=== PATIENT | female | born 1995 | race Caucasian/White ===

== ENCOUNTER 2019-05-16 16:41 | Emergency (ER) | payer OTHER ==
[~2019-05-16] VITALS: Ht 157.5 cm; Wt 90.7 kg
[2019-05-16 16:51] VITALS: BP_SYST 130
[2019-05-16 17:34] LABS: BLOOD, URINE 3+ (NEGATIVE); CLARITY/URINE SL CLOUDY (CLEAR); COLOR,URINE RED (YELLOW); GLUCOSE,URINE NEGATIVE (NEGATIVE); KETONES,URINE 1+ (NEGATIVE); LEUKOCYTE ESTERASE ,URINE 2+ (NEGATIVE); NITRITE, URINE NEGATIVE (NEGATIVE); PH,URINE 5.5 (5.0-8.0); PROTEIN URINE 2+ (NEGATIVE)
[2019-05-16 17:38] LABS: BILIRUBIN,URINE NEGATIVE (NEGATIVE)
[2019-05-16 17:39] LABS: BACTERIA,URINE MODERATE /HPF (None Seen); MUCUS,URINE None Seen /LPF (None Seen); RBC,URINE >100 /HPF (0-3); WBC,URINE 20-50 /HPF (0-3)
--- NOTE | 2019-05-16 18:13 | NUR ---
Patient to ER bed 04 to gown for evaluation. Side rails up.
--- NOTE | 2019-05-16 18:30 | NUR ---
PAtient presented to ER with dizziness with head ache. Patient A&ox4, afebrile, ambulatory to ER, denies pain, denies N/V/D. Patient HX of vaginal delivery x1 week ago.
--- NOTE | 2019-05-16 18:35 | NUR ---
ER Dr. Aly at bedside examining patient.
[2019-05-16] MEDS ORDERED: NACL 0.9% 1,000 ML IV ONE ×2 (18:45→21:30)
[2019-05-16 19:16] LABS: BASOPHILS # (AUTO) 0.1 K/uL (0.0-0.2); BASOPHILS % (AUTO) 0.6 % (0.0-2.0); EOSINOPHILS # (AUTO) 0.2 K/uL (0.0-0.4); EOSINOPHILS % (AUTO) 2.4 % (0.0-4.0); HEMATOCRIT 40.5 % (36-48); HEMOGLOBIN 13.4 g/dL (12.0-16.0); LYMPHOCYTES # (AUTO) 2.8 K/uL (1.0-5.5); MEAN CORPUSCULAR HEMOGLOBIN 30 pg (27-31); MEAN CORPUSCULAR HGB CONC 33 % (32-36); MEAN CORPUSCULAR VOLUME 92 fL (79.0-98.0); MONOCYTES # (AUTO) 0.4 K/uL (0.0-1.0); MONOCYTES % (AUTO) 3.9 % (1.7-9.3); NEUTROPHILS # (AUTO) 6.5 K/uL (1.8-7.7); NEUTROPHILS % (AUTO) 65.1 % (40.0-70.0); PLATELET COUNT (AUTO) 382 K/uL (130-430); RED BLOOD CELL COUNT(AUTO) 4.41 MIL/uL (4.2-6.2); RED CELL DISTRIBUTION WIDTH 13.7 % (9.0-15.0); WHITE BLOOD COUNT (AUTO) 9.9 K/uL (4.8-10.8)
--- NOTE | 2019-05-16 19:17 | NUR ---
Report to Nohelia DAY
[2019-05-16 19:20] LABS: CREATININE 0.65 mg/dL (0.55-1.30); POTASSIUM 3.8 mmol/L (3.5-5.1)
[2019-05-16 19:26] LABS: ALBUMIN 2.8 g/dL (3.4-4.8); TOTAL BILIRUBIN 0.1 mg/dL (0.0-1.0)
--- NOTE | 2019-05-16 19:40 | NUR ---
Patient resting quietly. No acute distress noted. Vital signs within normal range.
--- NOTE | 2019-05-16 19:50 | NUR ---
Sisi fisher in ED - 05/16/19 at 2004 by [email or web address] Pt returned from US on stable condition, VSS, no s/s of distress.
--- NOTE | 2019-05-16 19:50 | NUR ---
Pt to U/S via W/C in stable condition.
--- NOTE | 2019-05-16 20:01 | NUR ---
Pt returns from U/S, no needs verbalized at this time.
[2019-05-16] MEDS ORDERED: cefTRIAXone 1 GM IVPB PREMIX 50 ML IV ONE (21:15)
--- NOTE | 2019-05-16 22:55 | NUR ---
Patient given written and verbal discharge instructions and verbalizes understanding. ER MD discussed with patient the results and treatment provided. Patient in stable condition. ID arm band removed. IV catheter removed intact and dressing applied, no active bleeding. Rx of Keflex 500mg PO given. Patient educated on pain management and to follow up with PMD. Pain Scale 0/10 Opportunity for questions provided and answered. Medication side effect fact sheet provided.
[2019-05-16 23:00] VITALS: BP_SYST 119
== END 2019-05-16 22:59 | disposition home or self-care (01) ==
LOC: SED 16:41
DX: O86.20 Urinary tract infection following delivery, unspecified (principal); R42 Dizziness and giddiness
CPT/HCPCS: 36415; 76856; 80053; 81000; 81025; 85025; 87040; 87086; 96361; 96365; 99284; J0696; J7030; J7040